=== PATIENT | female | born 1950 | race Caucasian/White ===

== ENCOUNTER 2017-08-01 07:19 | Day surgery (SDC) | END 2017-08-01 14:23 | disposition home or self-care (01) ==

== ENCOUNTER 2018-01-15 14:54 | Inpatient (IN) | END 2018-01-18 14:46 | disposition home or self-care (01) | DRG 227 ==

== ENCOUNTER 2018-02-02 17:30 | Inpatient (IN) | END 2018-02-03 13:18 | disposition home or self-care (01) | DRG 315 ==